=== PATIENT | male | born 1985 | race African-American/Black ===

== ENCOUNTER 2016-11-11 07:06 | Emergency (ER) | payer SELFPAY ==
[~2016-11-11] VITALS: Ht 185.4 cm; Wt 75.0 kg
[2016-11-11 07:09] VITALS: BP 122/74; PULSE 92; RESP 18; TEMP 98; O2SAT 99
--- NOTE | 2016-11-11 07:34 | PD ---
HPI Chief Complaint: Back/ Neck Pain or Injury Time Seen by Provider: 07:34 Travel History International Travel<30 days: No Contact w/Intl Traveler<30days: No Traveled to known affect area: No History of Present Illness HPI 31-year-old male presents to the emergency Department with complaint of right- sided low back pain times one week. 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 He says he is constantly lifting heavy boxes and twisting and turning. Thought the pain would get better but hasn't. Reports similar back pain in the past but resolved quicker. Denies encopresis, incontinence, saddle anesthesias. Denies IV drug use, cancer. Denies paresthesias, loss of sensation, decreased range of motion, decreased strength to bilateral lower extremities. Denies fever, chills, nausea, vomiting, abdominal pain. Denies dysuria or hematuria. Has tried taking ibuprofen with no relief of symptoms. Pain is aggravated with movement, twisting, ambulation. No known allergies. Does not have an established primary care provider. No other modifying factors or associated signs and symptoms. [facility] Past Medical History Asthma: No Diminished Hearing: No Social History Alcohol Use: Yes (OCASSIONAL) Tobacco Use: Yes (1 PACK) Substance Use: No Allergies-Medications (Allergen,Severity, Reaction): Coded Allergies: No Known Allergies (Verified , 06/15/16) Reported Meds & Prescriptions Reported Meds & Active Scripts Active Naproxen 500 Mg Tab 500 Mg PO BID PRN Flexeril (Cyclobenzaprine HCl) 10 Mg Tab 10 Mg PO TID PRN Review of Systems Except as stated in HPI: all other systems reviewed are Neg Physical Exam Narrative GENERAL: Well-nourished, well-developed male patient, in no acute distress SKIN: Warm and dry. HEAD: Atraumatic. Normocephalic. EYES: Pupils equal and round. No scleral icterus. No injection or drainage. ENT: Mucosa pink and moist. Airway patent. NECK: Trachea midline. CARDIOVASCULAR: Regular rate. RESPIRATORY: No accessory muscle use. GASTROINTESTINAL: Abdomen soft, non-tender, nondistended. Positive bowel sounds. No hepato-splenomegaly, or palpable masses. No guarding. MUSCULOSKELETAL: Bilateral lower extremities supple and non-tense with 2+ pedal pulses and sensory intact; with full range of motion and 5/5 strength. Active dorsiflexion and extension of bilateral feet. Bilateral straight leg raise is negative for low back pain. Ambulatory with normal gait. Sitting up in bed at 90. No obvious deformities. No clubbing. No cyanosis. No edema. BACK: No midline point tenderness on palpation of the lumbar, thoracic spine. Tenderness on palpation of right iliosacral area. No obvious deformities. NEUROLOGICAL: Awake and alert. Oriented 3. No obvious cranial nerve deficits. Motor grossly within normal limits. Normal speech. Moves all extremities. 5/5 strength to all extremities. Sensory intact. PSYCHIATRIC: Appropriate mood and affect; insight and judgment normal. Data Data Last Documented VS Vital Signs Date Time Temp Pulse Resp B/P Pulse Ox O2 Delivery O2 Flow Rate FiO2 11/11/16 07:09 98.0 92 18 122/74 99 Orders Ibuprofen (Motrin) (11/11/16 07:45) Methocarbamol (Robaxin) (11/11/16 07:45) [facility] Medical Decision Making Medical Screen Exam Complete: Yes Emergency Medical Condition: Yes Medical Record Reviewed: Yes Differential Diagnosis Low back pain, low back strain, muscle spasms, sciatica Narrative Course 31-year-old male with right-sided acute low back pain and low back strain. Denies IV drug use, cancer. Denies encopresis, incontinence, saddle anesthesias. No midline point tenderness on palpation of the lumbar or thoracic spine. Ibuprofen and Robaxin administered in the ER. Flexeril and naproxen prescribed for home. Work release provided. Patient verbalizes understanding and agreement with treatment plan. Patient is medically cleared and stable for discharge. Discussed reasons to return to the emergency department. Instructed patient to follow up with primary care provider. Patient agrees with treatment plan. The patients vital signs are stable and the patient is stable for outpatient follow-up and treatment. Patient discharged home, stable and in no acute distress. Diagnosis Primary Impression: Acute low back pain Qualified Code: M54.5 - Acute right-sided low back pain without sciatica Additional Impression: Low back strain Qualified Code: S39.012A - Low back strain, initial encounter Referrals: Primary Care Physician Patient Instructions: Acute Low Back Pain (ED), General Instructions, Low Back Strain (ED), Lower Back Exercises (ED) Departure Forms: Tests/Procedures, Work Release Enter return to work date: Nov 13, 2016 Additional Instructions: Tylenol or ibuprofen as directed and as needed for pain Flexeril as prescribed and as needed for muscle spasms Heating pad and/or ice to affected area to reduce pain Avoid aggravating activities; increase activity as tolerated Follow-up with primary care provider Return to emergency department immediately with worsening of symptoms Med/Other Pt SpecificInfo: Prescription(s) given Scripts Naproxen 500 Mg [id number] Mg PO BID PRN (PAIN SCALE 1 TO 10) #20 TAB Ref 0 Prov:Shaye Ireland 11/11/16 Cyclobenzaprine (Flexeril)10 Mg Tab10 Mg PO TID PRN (MUSCLE SPASM) #30 TAB Ref 0 Prov:hSaye Ireland 11/11/16 Disposition: 01 DISCHARGE HOME Condition: Stable Shaye Ireland Nov 11, 2016 07:34
[2016-11-11] MEDS ORDERED: CYCL1TAB29 PO (07:37)
[2016-11-11] MEDS ORDERED: NAPR500T PO (07:37)
[2016-11-11] MEDS ORDERED: METHOCARBAMOL 500 MG TAB PO ONE (07:45)
[2016-11-11] MEDS ORDERED: IBUPROFEN 800 MG TAB PO ONE (07:45)
== END 2016-11-11 08:05 | disposition home or self-care (01) ==
LOC: NEPB 07:06
DX: M54.5 Low back pain (principal); S39.012A Strain of muscle, fascia and tendon of lower back, initial encounter; F17.200 Nicotine dependence, unspecified, uncomplicated; X50.0XXA Overexertion from strenuous movement or load, initial encounter; X50.1XXA Overexertion from prolonged static or awkward postures, initial encounter; Y99.0 Civilian activity done for income or pay
CPT/HCPCS: 99283

== ENCOUNTER 2017-08-23 23:11 | Emergency (ER) | payer SELFPAY ==
[~2017-08-23] VITALS: Ht 185.4 cm; Wt 75.0 kg
[~2017-08-23 23:11] MED LIST: CYCL10TA PO; NAPR500T2 PO
[2017-08-23 23:12] VITALS: BP 130/82; PULSE 72; RESP 16; TEMP 98.8; O2SAT 98
[2017-08-23] MEDS ORDERED: PROPARACAINE HCL 0.5% OPHT SOLN 15 ML BTL LEFT EYE ONE (23:45)
--- NOTE | 2017-08-23 23:48 | PD ---
HPI Chief Complaint: Eye Problems/Injury Time Seen by Provider: 23:36 Travel History International Travel<30 days: No Contact w/Intl Traveler<30days: No Traveled to known affect area: No History of Present Illness HPI 32-year-old black male presents to emergency Department with complaints of left eye pain and foreign body sensation over last 24 hours. He states that he is unsure whether it gotten something in his eye. He does not recall any trauma. No recent illness. Some blurred vision, slight photophobia, tearing and mucoid drainage. Also pain. He denies any diplopia. No recent illness. Patient's up -to-date with immunizations. No history of prior eye injury. PFSH Past Medical History Medical History: Denies Significant Hx Asthma: No Diminished Hearing: No Tetanus Vaccination: < 5 Years Past Surgical History Surgical History: No Previous Surgery Social History Alcohol Use: Yes (OCASSIONAL) Tobacco Use: Yes (1 PACK) Substance Use: No Allergies-Medications (Allergen,Severity, Reaction): Coded Allergies: No Known Allergies (Verified Adverse Reaction, Unknown, 08/23/17) Reported Meds & Prescriptions Reported Meds & Active Scripts Active No Active Prescriptions or Reported Medications Review of Systems General / Constitutional: No: Fever Eyes: Positive: Blurred Vision, Photophobia, Drainage, Redness, Foreign Body Sensation, Pain, Tearing, Visual changes, No: Diploplia, Blindness HENT: No: Headaches Cardiovascular: No: Chest Pain or Discomfort Respiratory: No: Shortness of Breath Gastrointestinal: No: Abdominal Pain Genitourinary: No: Dysuria Musculoskeletal: No: Pain Skin: No Rash Neurologic: No: Weakness Psychiatric: No: Depression Endocrine: No: Polydipsia Hematologic/Lymphatic: No: Easy Bruising Physical Exam Narrative GENERAL: Well-developed, well-nourished in no acute distress. Nontoxic appearing. HEAD: Normocephalic, atraumatic. EYES: Pupils equal round and reactive. Extraocular motions intact. No scleral icterus. No injection or drainage in the right eye. The left eye is injected. There is mucoid drainage. There is a small sub-millimeter area off the cornea on the sclera nasally. It is unclear whether this is a small blood vessel hemorrhage versus a small foreign body. There is a foreign body noted under the upper eyelid. ENT: TMs clear without erythema. The external auditory canals clear. Nose: clear . Posterior pharynx is pink and moist. No tonsillar edema or exudate. Uvula midline. Airway patent. NECK: Trachea midline.Supple, nontender, moves head freely. No central bony tenderness or spasm. CARDIOVASCULAR: Regular rate and rhythm without murmurs, gallops, or rubs. RESPIRATORY: Clear to auscultation. Breath sounds equal bilaterally. No wheezes , rales, or rhonchi. GASTROINTESTINAL: Abdomen soft, non-tender, nondistended. No hepato-splenomegaly , or palpable masses. No guarding. EXTREMITIES: No clubbing, cyanosis, or edema. No joint tenderness, effusion, or edema noted. BACK: Nontender without deformity or crepitance. No flank tenderness. Data Data Last Documented VS Vital Signs Date Time Temp Pulse Resp B/P (MAP) Pulse Ox O2 Delivery O2 Flow Rate FiO2 08/23/17 23:12 98.8 72 16 130/82 (98) 98 Room Air Orders Orders Proparacaine 0.5% Opth Soln (Alcaine 0.5 (08/23/17 23:45) Tobramycin 0.3% Opth Soln (Tobrex 0.3% O (08/24/17 00:15) Ed Discharge Order (08/24/17 00:06) [facility] Medical Decision Making Medical Screen Exam Complete: Yes Emergency Medical Condition: Yes Medical Record Reviewed: Yes Differential Diagnosis MDM: High Differential diagnoses: Acute conjunctivitis (bacterial, viral, allergic, traumatic), glaucoma, iritis, traumatic globe injury, foreign body, corneal abrasion, corneal ulcer, diabetic retinopathy, photokeratitis, herpes keratitis , CMV retinitis Narrative Course Alcaine is instilled in the left eye. Procedures Procedure Narrative Foreign body removal left eye: 2 drops of Alcaine are instilled in left eye. After adequate anesthesia the eye lids are flipped. There is a plant like foreign body noted under the upper eyelid nasal aspect. This is removed using a Q-tip. There is a small submillimeter density on the sclera outside the visual field nasally. It is unclear whether this is a small hemorrhage of a blood vessel or small foreign body. Diagnosis Primary Impression: Foreign body of left eye Qualified Codes: T15.92XA - Foreign body on external eye, part unspecified, left eye, initial encounter Additional Instructions: Rest. No rubbing. 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 Return to the ER for problems. Med/Other Pt SpecificInfo: Prescription(s) given Scripts No Active Prescriptions or Reported Meds Disposition: 01 DISCHARGE HOME Condition: Stable Terry Roa Aug 23, 2017 23:48
[2017-08-24] MEDS ORDERED: TOBRAMYCIN SULF 0.3% OPHT SOLN 5 ML BTL LEFT EYE SCH (00:15)
== END 2017-08-24 00:56 | disposition home or self-care (01) ==
LOC: NEPD 23:11
DX: T15.92XA Foreign body on external eye, part unspecified, left eye, initial encounter (principal); F17.200 Nicotine dependence, unspecified, uncomplicated; X58.XXXA Exposure to other specified factors, initial encounter
CPT/HCPCS: 65205